=== PATIENT | male | born 1960 | race African-American/Black ===

== ENCOUNTER 2020-09-07 04:48 | Emergency (ER) | payer OTHER ==
[2020-09-07 05:19] LABS: BASOPHIL 0.4 % (0-2); EOSINOPHIL 5.2 % (0-5); HCT 41.9 % (42.0-52.0); HGB 13.4 g/dl (13.2-18.0); LYMPHOCYTE 42.6 % (15-48); MCH 26.5 pg (25.0-31.0); MONOCYTE 5.8 % (0-12); MPV 10.8 fL (6.0-9.5); NEUTROPHIL 45.7 % (41-80); NRBC 0; PLT 258 K/uL (150-400); RBC 5.05 M/uL (4.70-6.00); RDW 15.4 % (11.5-14.0); WBC 6.7 K/uL (4.0-10.5)
[2020-09-07 05:45] LABS: ALBUMIN 3.9 g/dL (3.4-5.0); BILIRUBIN - TOTAL 0.2 mg/dL (0.2-1.0); BUN/CREAT RATIO (CALC) 18.6 RATIO; CREATININE 1.02 mg/dL (0.67-1.17); MAGNESIUM 1.9 mg/dL (1.8-2.4); POTASSIUM 3.7 mmol/L (3.5-5.1); TOTAL PROTEIN 7.9 g/dL (6.4-8.2)
[2020-09-07 05:47] LABS: PRO-BNP 5 pg/mL (<125)
[2020-09-07 06:46] LABS: IRON % SATURATION 14.4 %SAT (20-50)
[2020-09-07 06:53] LABS: BILIRUBIN NEGATIVE (NEGATIVE); BLOOD NEGATIVE Ery/uL (NEGATIVE); CLARITY CLEAR (CLEAR); COLOR YELLOW (YELLOW); GLUCOSE (U) 1+ mg/dL (NORMAL); LEUKOCYTES NEGATIVE Leu/uL (NEGATIVE); NITRITE NEGATIVE (NEGATIVE); PROTEIN NEGATIVE (NEGATIVE); SPECIFIC GRAVITY >=1.030 (1.001-1.030); UROBILINOGEN 0.2 mg/dL (0.2-1.0)
[2020-10-15] MEDS ORDERED: HUMULIN N100 UNIT/1 SC (12:23)
[2020-10-15] MEDS ORDERED: HUMULIN R100 UNIT/1 SC (12:24)
[2020-10-15] MEDS ORDERED: METFORMIN HCL500 MG PO (12:27)
[2020-10-15] MEDS ORDERED: NORVASC2.5 MG PO (12:30)
[2020-10-15] MEDS ORDERED: AMARYL1 MG PO (12:30)
[2020-10-15] MEDS ORDERED: CETIRIZINE HCL5 MG PO (12:31)
[2020-10-15] MEDS ORDERED: SLOW FE142 MG PO (12:31)
[2020-10-20] MEDS ORDERED: LISINOPRIL-HCT1 EAC2 PO (07:11)
[2020-10-20] MEDS ORDERED: GLUCOTROL XL5 MG PO (07:12)
== END 2020-09-07 08:50 | disposition home or self-care (01) ==
LOC: FER 04:48
PROVIDERS: Emergency Medicine
DX: R00.2 Palpitations (principal); I10 Essential (primary) hypertension; E11.9 Type 2 diabetes mellitus without complications; Z79.4 Long term (current) use of insulin; Z88.0 Allergy status to penicillin; Z88.6 Allergy status to analgesic agent
CPT/HCPCS: 36415; 71045; 80053; 81003; 82550; 83540; 83550; 83735; 83880; 84145; 84443; 84484; 85025; 85379; 93005; J7030

== ENCOUNTER → 2020-10-20 | Day surgery (SDC) | payer OTHER ==
--- NOTE | 2020-10-15 12:45 | NUR ---
ADVISED PATIENT TO SPEAK TO PRIMARY CARE PHYSICIAN REGARDING USE OF INSULIN THE DAY BEFORE PROCEDURE. PATIENT STATES HIS BLOOD SUGER WAS 63 THE DAY HE HAD ANOTHER PROCEDURE AND HE DID NOT TOLERATE IT WELL. PATIENT AGREED TO SEEK ADVISE FROM PCP REGARDING THIS
[~2020-10-20] MED LIST: AMARYL1 MG PO; CETIRIZINE HCL5 MG PO; GLUCOTROL XL5 MG PO; HUMULIN N100 UNIT/1 SC; HUMULIN R100 UNIT/1 SC; LISINOPRIL-HCT1 EAC2 PO; METFORMIN HCL500 MG PO; NORVASC2.5 MG PO; SLOW FE142 MG PO
== END | disposition home or self-care (01) ==
LOC: FAS 06:50
DX: D12.2 Benign neoplasm of ascending colon (principal); K44.9 Diaphragmatic hernia without obstruction or gangrene; E11.9 Type 2 diabetes mellitus without complications; I10 Essential (primary) hypertension; Z20.822 Contact with and (suspected) exposure to COVID-19; Z88.0 Allergy status to penicillin; Z98.890 Other specified postprocedural states; Z82.49 Family history of ischemic heart disease and other diseases of the circulatory system; Z88.8 Allergy status to other drugs, medicaments and biological substances
CPT/HCPCS: J2250; J2704; J7120

== ENCOUNTER 2020-11-09 13:44 | Emergency (ER) | payer OTHER ==
[2020-11-09 15:07] LABS: BASOPHIL 0.6 % (0-2); HCT 39.4 % (42.0-52.0); HGB 12.5 g/dl (13.2-18.0); LYMPHOCYTE 36.6 % (15-48); MCHC 31.7 g/dL (32.0-36.0); MCV 81.9 fL (78.0-100.0); MONOCYTE 6.2 % (0-12); MPV 10.5 fL (6.0-9.5); NEUTROPHIL 49.4 % (41-80); NRBC 0; PLT 224 K/uL (150-400); RBC 4.81 M/uL (4.70-6.00); WBC 5.2 K/uL (4.0-10.5)
[2020-11-09 15:27] LABS: BUN/CREAT RATIO (CALC) 16.1 RATIO; CREATININE 0.93 mg/dL (0.67-1.17)
== END 2020-11-09 16:19 | disposition home or self-care (01) ==
LOC: FER 13:44
PROVIDERS: Nurse Practitioner Family
DX: T67.5XXA Heat exhaustion, unspecified, initial encounter (principal); E10.9 Type 1 diabetes mellitus without complications; Z88.0 Allergy status to penicillin; Z88.6 Allergy status to analgesic agent; X30.XXXA Exposure to excessive natural heat, initial encounter
CPT/HCPCS: 36415; 70450; 80048; 85025; J7030